=== PATIENT | male | born 1955 | race Hispanic/Latino ===

== ENCOUNTER 2020-04-04 21:17 | Emergency (ER) | payer SELFPAY ==
--- NOTE | 2020-04-04 22:32 | Cat Scan Report ---
CT head/brain wo con INDICATION: AMS, frequent falls. TECHNIQUE: All CT scans at this location are performed using the following dose modulation technique: Automated exposure control. CONTRAST: None. COMPARISON: None available. FINDINGS: Localized dilatation of the occipital horn of the left lateral ventricle extending into the temporal region with mild adjacent encephalomalacia likely related to previous infarct. Negative for acute stroke, mass or hemorrhage. IMPRESSION: 1. 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 2. No acute abnormality. Signer Name: Daniel Quezada MD Signed: 04/04/2020 10:28 PM Workstation Name: [email or web address] [id number]
[2020-04-04 23:06] LABS: Basophils # (Auto) 0.1 K/mm3 (0.0-0.1); Basophils % (Auto) 1.3 % (0.0-1.8); Eosinophils % (Auto) 0.3 % (0.0-4.3); Hematocrit 42.9 % (35.5-45.6); Hemoglobin 14.6 gm/dl (11.8-15.2); Lymphocytes # (Auto) 2.4 K/mm3 (1.2-5.4); Lymphocytes % (Auto) 37.5 % (13.4-35.0); Mean Corpuscular HGB Conc 34 % (32-34); Mean Corpuscular Volume 99 fl (84-94); Monocytes # (Auto) 0.3 K/mm3 (0.0-0.8); Monocytes % (Auto) 4.8 % (0.0-7.3); Platelet Count 282 K/mm3 (140-440); Red Blood Count 4.32 M/mm3 (3.65-5.03); Red Cell Distribution Width 15.3 % (13.2-15.2)
[2020-04-04 23:36] LABS: BUN/Creatinine Ratio 17; Blood Urea Nitrogen 12 mg/dL (9-20); Calcium 9.6 mg/dL (8.4-10.2); Hemolysis Index 7
[2020-04-05] MEDS ORDERED: SODIUM CHLORIDE 0.9% 1000 ML 1,000 ML IV ONE (04:20)
--- NOTE | 2020-04-05 04:26 | Emergency Department Report ---
ED Alcohol HPI - General Chief Complaint: Altered Mental Status Stated Complaint: ALTERED MENTAL STATUS Source: patient, EMS Mode of arrival: Wheelchair Limitations: No Limitations - History of Present Illness Initial Comments: Patient is 64 years old male with history of traumatic brain injury and history of chronic alcoholism. Patient brought to the emergency room by EMS. Patient found outside wandering. EMS stated that there is a bottle of EtOH [place] him. Patient with obvious alcohol intoxication. Vital signs stable. MD Complaint: alcohol intoxication Last Drink: just [employer] Chronic Alcohol Use: Yes Associated Symptoms: denies other symptoms - Related Data Allergies Allergy/AdvReac Type Severity Reaction Status Date / Time No Known Allergies Allergy Unverified 04/04/20 21:41 ED Review of Systems ROS: Stated complaint: ALTERED MENTAL STATUS Other details as noted in HPI Comment: All other systems reviewed and negative Constitutional: denies: chills, fever Respiratory: denies: cough, shortness of breath, SOB with exertion Cardiovascular: denies: chest pain, palpitations, dyspnea on exertion Gastrointestinal: denies: abdominal pain, nausea, vomiting, diarrhea, constipation, hematemesis, melena, hematochezia Musculoskeletal: denies: back pain Neurological: denies: headache, weakness, numbness, paresthesias, confusion, abnormal gait ED Past Medical Hx - Past Medical History Previous Medical History?: Yes Hx Seizures: Yes Additional medical history: TBI - Surgical History Past Surgical History?: No - Social History Smoking Status: Current Some Day Smoker Substance Use Type: None ED Physical Exam - General Limitations: No Limitations General appearance: alert, appears intoxicated - Head Head exam: Present: atraumatic, normocephalic, normal inspection - Eye Eye exam: Present: normal appearance - ENT ENT exam: Present: normal exam, normal orophraynx, mucous membranes moist - Neck Neck exam: Present: normal inspection, full ROM. Absent: tenderness, meningismus - Respiratory Respiratory exam: Present: normal lung sounds bilaterally - Cardiovascular Cardiovascular Exam: Present: regular rate, normal rhythm, normal heart sounds - GI/Abdominal GI/Abdominal exam: Present: soft, normal bowel sounds. Absent: distended, tenderness, guarding, rebound, rigid, organomegaly, mass, bruit, pulsatile mass, hernia - Extremities Exam Extremities exam: Present: normal inspection, full ROM, normal capillary refill. Absent: calf tenderness - Back Exam Back exam: Present: normal inspection, full ROM - Neurological Exam Neurological exam: Present: alert, altered, CN II-XII intact, reflexes normal. Absent: motor sensory deficit - Psychiatric Psychiatric exam: Present: normal mood. Absent: agitated, anxious, flat affect, manic, homicidal ideation, suicidal ideation - Skin Skin exam: Present: warm, intact, normal color ED Course Vital Signs 04/04/20 04/05/20 04/05/20 21:34 01:30 01:45 Temperature 97.6 F Pulse Rate 92 H 75 71 Respiratory 18 21 17 Rate Blood Pressure 137/90 115/69 117/70 Blood Pressure [Left] O2 Sat by Pulse 97 100 97 Oximetry 04/05/20 04/05/20 04/05/20 02:00 02:15 02:45 Temperature Pulse Rate 75 70 76 Respiratory 15 17 18 Rate Blood Pressure 120/74 110/67 117/73 Blood Pressure [Left] O2 Sat by Pulse 99 98 98 Oximetry 04/05/20 04/05/20 04/05/20 03:00 03:15 03:30 Temperature Pulse Rate 77 78 82 Respiratory 17 19 20 Rate Blood Pressure 123/68 127/70 119/67 Blood Pressure [Left] O2 Sat by Pulse 97 97 98 Oximetry 04/05/20 04/05/20 04/05/20 03:45 04:01 04:15 Temperature Pulse Rate 83 87 83 Respiratory 19 23 20 Rate Blood Pressure 112/59 123/76 106/61 Blood Pressure [Left] O2 Sat by Pulse 96 96 95 Oximetry 04/05/20 04/05/20 04/05/20 04:30 04:45 05:00 Temperature Pulse Rate 81 91 H 89 Respiratory 20 17 18 Rate Blood Pressure 113/65 129/56 133/71 Blood Pressure [Left] O2 Sat by Pulse 96 95 96 Oximetry 04/05/20 04/05/20 04/05/20 05:15 05:45 06:01 Temperature Pulse Rate 76 102 H 107 H Respiratory 17 16 18 Rate Blood Pressure 122/70 112/59 112/59 Blood Pressure [Left] O2 Sat by Pulse 98 95 96 Oximetry 04/05/20 04/05/20 04/05/20 06:15 06:30 06:45 Temperature Pulse Rate 98 H 101 H 95 H Respiratory 18 21 20 Rate Blood Pressure 112/59 102/53 111/57 Blood Pressure [Left] O2 Sat by Pulse 97 93 95 Oximetry 04/05/20 04/05/20 07:51 15:30 Temperature Pulse Rate 112 H 82 Respiratory 14 16 Rate Blood Pressure Blood Pressure 126/88 134/70 [Left] O2 Sat by Pulse 96 95 Oximetry ED Medical Decision Making - Lab Data Result diagrams: 04/04/20 22:22 04/04/20 22:22 - Radiology Data Radiology results: report reviewed - Medical Decision Making Patient is 64 years old male with history of traumatic brain injury and history of chronic alcoholism. Patient brought to the emergency room by EMS. Patient found outside wandering. EMS stated that there is a bottle of EtOH [place] him. Patient with obvious alcohol intoxication. Vital signs stable. Patient remained stable in the emergency room. Labs reviewed and is unremarkable except for elevated alcohol level of 0.35. CT brain is negative for acute finding. Patient started on normal saline. Patient will be observed until sober. Critical care attestation.: If time is entered above; I have spent that time in minutes in the direct care of this critically ill patient, excluding procedure time. ED Disposition Clinical Impression: Alcohol intoxication, Altered mental status Disposition: DC-01 TO HOME OR SELFCARE Is pt being admited?: No Condition: Stable Instructions: Alcohol Intoxication (ED) Referrals: PRIMARY CARE, [Primary Care Provider] - 3-5 Days
[2020-04-05 07:49] LABS: Bilirubin,Urine NEG (Negative); Blood,Urine NEG (Negative); Color,Urine Yellow (Yellow); Mucus,Urine FEW /HPF; Protein,Urine <15 mg/dL mg/dL (Negative); Urobilinogen,Urine < 2.0 mg/dL (<2.0)
[2020-04-05 08:01] LABS: Amphetamine Screen,Urine Negative; Benzodiazepines Screen,Urine Negative; Cannabinoid Screen,Urine Negative; Cocaine Screen,Urine Negative; Methadone Screen,Urine Negative; Opiate Screen,Urine Negative
[2020-04-05 17:04] VITALS: BP 134/70
== END 2020-04-05 15:30 | disposition home or self-care (01) ==
LOC: ED 21:17
DX: F10.129 Alcohol abuse with intoxication, unspecified (principal); R41.82 Altered mental status, unspecified; R56.9 Unspecified convulsions; F17.200 Nicotine dependence, unspecified, uncomplicated
CPT/HCPCS: 36415; 70450; 80048; 80307; 81001; 85025; 93005; 96360; 99285; J7030; 80320; G0480